=== PATIENT | female | born 1945 | race Caucasian/White ===

== ENCOUNTER 2019-03-12 14:56 | Outpatient (CLI) | payer MEDICARE, OTHER ==
--- NOTE | 2019-03-12 16:59 | Ultrasound Report ---
Reason: BLOATING,PELVIC PAIN,CERVICAL CANCER Procedure Date: 03/12/2019 Accession Number: [id number] / [id number] Procedure: US - Pelvic w/Transvaginal CPT Code: FULL RESULT: EXAM: PELVIC ULTRASOUND. EXAM DATE: 03/12/2019 03:34 PM. CLINICAL HISTORY: Bloating, pelvic pain, cervical cancer. COMPARISON: None. TECHNIQUE: Realtime transabdominal pelvic scan performed to identify the uterus and adnexa and as an overview of other pelvic structures, followed by transvaginal scan to provide greater detail of the uterus and adnexa, with static image documentation. FINDINGS: Uterus: The uterus is not seen, reported surgically removed. Right and left Ovary: Despite transabdominal and transvaginal attempts, both ovaries not seen, ultrasound windows are obscured by bowel gas. Free Fluid: None. Other: None. IMPRESSION: No free fluid or overt mass detected. RADIA
== END 2019-03-12 14:57 | disposition home or self-care (01) ==
LOC: DI 14:56
PROVIDERS: ATTEND Obstetrics & Gynecology
DX: R14.0 Abdominal distension (gaseous) (principal); R10.2 Pelvic and perineal pain; Z08 Encounter for follow-up examination after completed treatment for malignant neoplasm; Z85.41 Personal history of malignant neoplasm of cervix uteri
CPT/HCPCS: 76830; 76856

== ENCOUNTER 2020-11-20 11:38 | Emergency (ER) | payer MEDICARE, OTHER ==
--- NOTE | 2020-11-20 12:01 | ED Physician Documentation ---
PD HPI HEAD INJURY - Stated complaint Stated Complaint: GLF - Chief complaint Chief Complaint: Neuro - History obtained from History obtained from: Patient, Other - History of Present Illness Mechanism of head injury: Fell (Patient reports a mechanical fall losing her balance a week ago falling onto her right side on the cement. Injury to right side of her head and face, right lateral ribs, right elbow and ankle. She developed significant bruising in those areas with pain in the ribs and head in particular.), Other (She states she went to a walk-in clinic (sees the one [facility]) 2 days later and was evaluated. She may have had some mild weakness of the left arm at that time she says. She had a Tyshawn wrap of the ankle and states directed to recheck if worsening symptoms.) Where head injury occurred: Home Timing - onset: How many days ago (injury 1 week ago. Some weakness left arm at [place] eval. Definite weakness left arm and face the past 4 days.) Location of injury: Right, Front Quality of pain: Throbbing, Aching Associated symptoms: Other (weakness left arm and face the past 4 days notably; mild weakness left arm after the fall.). No: LOC, AMS, Neck pain Symptoms worsen with: Palpation (tender at scalp and face. Has pain right chest with movement and deep breathing.) Contributing factors: Anticoagulated (due to atrial fib) Similar symptoms before: Has not had sx before Recently seen: Clinic (walk in clinic 5 days ago.) Review of Systems Constitutional: denies: Fever, Chills Nose: denies: Rhinorrhea / runny nose, Congestion Cardiac: reports: Chest pain / pressure (right posterolateral mid ribs area.) Respiratory: reports: Dyspnea. denies: Cough GI: denies: Abdominal Pain, Nausea, Vomiting, Diarrhea Skin: reports: Abrasion (s) (right ankle). denies: Laceration (s) Neurologic: reports: Focal weakness (left side face and left arm), Numbness (left arm/hand), Headache, Head injury. denies: Altered mental status, LOC PD PAST MEDICAL HISTORY - Past Medical History Cardiovascular: Atrial fibrillation Respiratory: None Neuro: None Endocrine/Autoimmune: None GI: None Psych: Depression, Anxiety - Present Medications Home Medications: Ambulatory Orders Medication Instructions Recorded Confirmed Cholestyramine [Questran] 1 packet PO TID 11/20/20 11/20/20 Ipratropium [place] 1 - 2 sprays TID 11/20/20 11/20/20 Levothyroxine [Synthroid] 112 mcg PO QDAC 11/20/20 11/20/20 OLANZapine [Zyprexa Zydis] 7.5 mg PO QPM 11/20/20 11/20/20 Rivaroxaban [Xarelto] 20 mg PO QDDINNER 11/20/20 11/20/20 Sertraline [Zoloft] 75 mg PO DAILY 11/20/20 11/20/20 Spironolactone [Aldactone] 25 mg PO DAILY 11/20/20 11/20/20 amLODIPine [Norvasc] 5 mg PO DAILY 11/20/20 11/20/20 traZODone [Desyrel] 25 mg PO QPM 11/20/20 11/20/20 - Allergies Allergies/Adverse Reactions: Allergies Allergy/AdvReac Type Severity Reaction Status Date / Time No Known Drug Allergies Allergy Verified 11/20/20 11:57 PD ED PE NORMAL - Vitals Vital signs reviewed: Yes - General General: Alert and oriented X 3, Well developed/nourished, Other (Very notable bruising around the right side of the face head and lateral neck. Bruising is deeper purple. Tenderness along the scalp and forehead.) - HEENT HEENT: PERRL, EOMI, Pharynx benign, Other (left facial weakness moderate) - Neck Neck: Supple, no meningeal sign, No bony TTP - Cardiac Cardiac: No: RRR (irregular but rate controlled. No notable murmur. ) - Respiratory Respiratory: No respiratory distress, Clear bilaterally, Other (She has tenderness along the posterior lateral thoracic chest wall approximately ribs 6 through 8 area. No crepitance. Significant purple bruising from that area down to the iliac crest.) - Abdomen Abdomen: Soft, Non tender, Non distended - Female Female : Deferred - Rectal Rectal: Deferred - Back Back: No spinal TTP - Derm Derm: Normal color, Warm and dry - Extremities Extremities: Other (Right ankle is tender along the lateral malleolus. There is moderate swelling. There is bruising from the ankle to the dorsum of the foot and the lateral toes but no tenderness in the foot or toes themselves.). No: No tenderness to palpate - Neuro Neuro: Alert and oriented X 3, Normal speech, Other (Left-sided facial weakness. Left arm with 3 out of 5 motor and weak pickers material handlers. Decreased sensation to touch diffusely. The left leg has a very mild degree of weakness compared to the right.) Results - Vitals Vitals: Vital Signs - 24 hr 11/20/20 11/20/20 11/20/20 12:34 13:46 14:00 Temperature 37.0 C 37.0 C Heart Rate 60 65 68 Respiratory 18 20 18 Rate Blood Pressure 131/63 H 134/73 H 149/75 H O2 Saturation 100 98 97 11/20/20 11/20/20 11/20/20 14:30 15:00 15:10 Temperature Heart Rate 64 63 63 Respiratory 13 16 18 Rate Blood Pressure 139/65 H 140/69 H 140/69 H O2 Saturation 98 98 98 Oxygen O2 Source Room air - Labs Labs: Laboratory Tests 11/20/20 11/20/20 11/20/20 12:00 12:00 12:00 WBC 8.6 RBC 3.22 L Hgb 9.9 L Hct 30.6 L MCV 95.0 MCH 30.7 MCHC 32.4 RDW 12.8 Plt Count 258 MPV 10.4 Neut # (Auto) 6.1 Lymph # (Auto) 1.4 L Winn # (Auto) 0.9 Eos # (Auto) 0.1 Baso # (Auto) 0.1 Absolute Nucleated RBC 0.00 Nucleated RBC % 0.0 PT 12.9 H INR 1.2 APTT 24.3 L Sodium 137 Potassium 3.9 Chloride 99 L Carbon Dioxide 24 Anion Gap 14.0 H BUN 11 Creatinine 0.6 Estimated GFR (MDRD) 97 Glucose 132 H Calcium 9.7 Magnesium 2.3 Total Bilirubin 1.5 H AST 22 ALT 11 Alkaline Phosphatase 59 Total Protein 7.8 Albumin 4.4 Globulin 3.4 Albumin/Globulin Ratio 1.3 Lipase 27 Nasal Adenovirus (PCR) Nasal B. parapertussis DNA (PCR) Nasal Coronavir 229E PCR Nasal Coronavir HKU1 PCR Nasal Coronavir NL63 PCR Nasal Coronavir OC43 PCR Nasal Enterovir/Rhinovir PCR Nasal Influenza B PCR Nasal Influenza A PCR Nasal Parainfluen 1 PCR Nasal Parainfluen 2 PCR Nasal Parainfluen 3 PCR Nasal Parainfluen 4 PCR Nasal RSV (PCR) Nasal B.pertussis DNA PCR Nasal C.pneumoniae (PCR) Andrew Human Metapneumo PCR Nasal M.pneumoniae (PCR) Nasal SARS-CoV-2 (PCR) 11/20/20 13:55 WBC RBC Hgb Hct MCV MCH MCHC RDW Plt Count MPV Neut # (Auto) Lymph # (Auto) Winn # (Auto) Eos # (Auto) Baso # (Auto) Absolute Nucleated RBC Nucleated RBC % PT INR APTT Sodium Potassium Chloride Carbon Dioxide Anion Gap BUN Creatinine Estimated GFR (MDRD) Glucose Calcium Magnesium Total Bilirubin AST ALT Alkaline Phosphatase Total Protein Albumin Globulin Albumin/Globulin Ratio Lipase Nasal Adenovirus (PCR) NOT DETECTED Nasal B. parapertussis DNA (PCR) NOT DETECTED Nasal Coronavir 229E PCR NOT DETECTED Nasal Coronavir HKU1 PCR NOT DETECTED Nasal Coronavir NL63 PCR NOT DETECTED Nasal Coronavir OC43 PCR NOT DETECTED Nasal Enterovir/Rhinovir PCR NOT DETECTED Nasal Influenza B PCR NOT DETECTED Nasal Influenza A PCR NOT DETECTED Nasal Parainfluen 1 PCR NOT DETECTED Nasal Parainfluen 2 PCR NOT DETECTED Nasal Parainfluen 3 PCR NOT DETECTED Nasal Parainfluen 4 PCR NOT DETECTED Nasal RSV (PCR) NOT DETECTED Nasal B.pertussis DNA PCR NOT DETECTED Nasal C.pneumoniae (PCR) NOT DETECTED Andrew Human Metapneumo PCR NOT DETECTED Nasal M.pneumoniae (PCR) NOT DETECTED Nasal SARS-CoV-2 (PCR) NOT DETECTED - Rads (name of study) head CT Radiology: Prelim report reviewed, Discussed with rads (1 cm right subdural hematoma with some subarachnoid extension. There is encroachment on the lateral ventricle. Mild midline shift. No fracture), See rad report cervical CT Radiology: Prelim report reviewed (degenerative changes without fracture.), See rad report chest C/Abd CT Radiology: Prelim report reviewed (Posterior lateral right seventh rib fracture. Soft tissue swelling. No lung injury. Intra-abdominal organs are normal.), See rad report ankle xray Radiology: Prelim report reviewed (no fractures), See rad report PD MEDICAL DECISION MAKING - ED course Complexity details: reviewed results, considered differential (1 week ago with injury to the right side of the head chest wall lower leg and ankle. Localized bruising and swelling. Seen in a walk-in clinic 2 days later with a wrap for her ankle. Apparent normal neuro at that time. She has noticed weakness of her left arm and side of the face for 4 days.), d/w patient, d/w technology sales consultant (Contact was made with [facility] average regarding trauma. Initially waited for neurosurgery to call back. They were in a case. Subsequently Dr. Cordero trauma surgeon called and accepted transfer. They did want ER evaluation of on transfer as a trauma.) Departure - Departure Disposition: 02 Transfer Acute Care Hosp Clinical Impression: Anticoagulant long-term use, Subdural hematoma, acute, Left-sided weakness Head contusion Qualifiers: Encounter type: initial encounter Contusion of head detail: scalp Qualified Code(s): S00.03XA - Contusion of scalp, initial encounter Chest wall contusion Qualifiers: Encounter type: initial encounter Laterality: right Qualified Code(s): S20.211A - Contusion of right front wall of thorax, initial encounter Ankle sprain Qualifiers: Encounter type: initial encounter Involved ligament of ankle: unspecified ligament Laterality: right Qualified Code(s): S93.401A - Sprain of unspecified ligament of right ankle, initial encounter Rib fracture Qualifiers: Encounter type: initial encounter Rib fracture type: single rib Fracture type: closed Laterality: right Qualified Code(s): S22.31XA - Fracture of one rib, right side, initial encounter for closed fracture Condition: Stable Record reviewed to determine appropriate education?: Yes
[2020-11-20 12:33] LABS: BASOPHILS # (AUTO) 0.1 10^3/uL (0.0-0.1); BASOPHILS % (AUTO) 0.9 %; EOSINOPHILS # (AUTO) 0.1 10^3/uL (0.0-0.7); EOSINOPHILS % (AUTO) 1.1 %; HCT - HEMATOCRIT 30.6 % (37.0-47.0); HGB - HEMOGLOBIN 9.9 g/dL (12.0-16.0); LYMPHOCYTES # (AUTO) 1.4 10^3/uL (1.5-3.5); LYMPHOCYTES % (AUTO) 15.9 %; MEAN CORPUSCULAR HEMOGLOBIN 30.7 pg (27.0-31.0); MEAN CORPUSCULAR HGB CONC 32.4 g/dL (32.0-36.0); MEAN PLATELET VOLUME 10.4 fL (7.9-10.8); MONOCYTES # (AUTO) 0.9 10^3/uL (0.0-1.0); MONOCYTES % (AUTO) 10.3 %; NEUTROPHILS # (AUTO) 6.1 10^3/uL (1.5-6.6); NEUTROPHILS % (AUTO) 71.3 %; PLT - PLATELET COUNT 258 10^3/uL (130-450); RED BLOOD COUNT 3.22 10^6/uL (4.20-5.40); RED CELL DISTRIBUTION WIDTH 12.8 % (12.0-15.0); WHITE BLOOD COUNT 8.6 x10^3/uL (4.8-10.8)
[2020-11-20 12:42] LABS: INR 1.2 (0.8-1.2); PT - PROTHROMBIN TIME 12.9 secs (9.9-12.6)
[2020-11-20] MEDS ORDERED: IOVERSOL 320 100 ML VIAL IVP ONE ×2 (12:47→14:39)
[2020-11-20 12:49] LABS: ALBUMIN 4.4 g/dL (3.2-5.5); ALBUMIN/GLOBULIN RATIO 1.3 (1.0-2.2); BILIRUBIN,TOTAL 1.5 mg/dL (0.2-1.0); CALCIUM 9.7 mg/dL (8.5-10.3); CREATININE 0.6 mg/dL (0.4-1.0); MAGNESIUM 2.3 mg/dL (1.7-2.8); POTASSIUM 3.9 mmol/L (3.5-5.0); TOTAL PROTEIN 7.8 g/dL (6.7-8.2)
[2020-11-20 12:50] LABS: PARTIAL THROMBOPLASTIN TIME 24.3 secs (24.9-33.3)
--- NOTE | 2020-11-20 13:28 | XRAY Report ---
PROCEDURE: Ankle 3 View RT INDICATIONS: fall with injury right ankle TECHNIQUE: 3 views of the ankle were acquired. COMPARISON: None FINDINGS: Bones: No fractures or dislocations. Ankle mortise is normally aligned. No suspicious bony lesions . Soft tissues: No tibiotalar joint effusion. Achilles tendon appears normal. Lateral soft tissue sw elling. IMPRESSION: 1. Lateral ankle sprain. 2. No evidence acute fracture or dislocation of the right ankle. Reviewed by: Randy Wakefield MD on 11/20/2020 12:26 PM [facility] Approved by: Randy Wakefield MD on 11/20/2020 12:26 PM [facility] Station ID: [id number]
--- NOTE | 2020-11-20 13:32 | CT Report ---
PROCEDURE: CERVICAL SPINE WO INDICATIONS: fall with head/neck injury TECHNIQUE: Noncontrast 3 mm thick sections acquired from the skull base to the T4 level. Sagittal and coronal r eformats were then constructed. For radiation dose reduction, the following was used: automated exp osure control, adjustment of mA and/or kV according to patient size. COMPARISON: None. FINDINGS: Image quality: Excellent. Bones: No fractures or dislocations. Visualized superior ribs are intact. Cervical spondylosis cent ered at C4-C5 and C5-C6. At these levels there is facet hypertrophy and bilateral uncovertebral joint osteophytes and bilateral bony foraminal narrowing. Soft tissues: Prevertebral soft tissues are normal in thickness. No paravertebral hematomas. No ap ical pneumothoraces. Lateral carotid bifurcation region atherosclerotic calcifications. IMPRESSION: 1. No evidence acute cervical fracture or dislocation. 2. Cervical spondylitic change. 3. ASCVD. Reviewed by: Randy Wakefield MD on 11/20/2020 12:30 PM [facility] Approved by: Randy Wakefield MD on 11/20/2020 12:30 PM [facility] Station ID: [id number]
[2020-11-20] MEDS ORDERED: PROTHROMBIN COMPLEX CONC 500 UNIT VIAL IVP STA (13:37)
--- NOTE | 2020-11-20 13:39 | CT Report ---
PROCEDURE: HEAD WO INDICATIONS: fall with head injury; on DOAC TECHNIQUE: Noncontrast 4.5 mm thick angled axial sections acquired from the foramen magnum to the vertex. For r adiation dose reduction, the following was used: automated exposure control, adjustment of mA and/or kV according to patient size. COMPARISON: None. FINDINGS: Image quality: Excellent. CSF spaces: There is an acute subdural hematoma on the right which measures 1.0 cm in maximum transv erse thickness. There is mass effect on the its lateral lateral ventricle which is slightly compresse d. There is a small amount of right subarachnoid hemorrhage Brain: There is very trace midline shift. There is mild narrowing of the ambient cistern. Medina-white matter interface is normal. Skull and face: Calvarium and visualized facial bones are intact, without suspicious lesions. Small right frontal subgaleal hematoma. Sinuses: Bilateral maxillary sinus air-fluid levels and mucosal thickening. Extensive opacification o f the ethmoids, which is likely chronic. Cannot exclude polyps. Hypoaerated frontal sinuses, opacifie d on the right and nonformed on the left. Sphenoid sinus air-fluid level. IMPRESSION: 1. Acute right subdural hematoma which measures 1.0 cm in maximum transverse diameter, with mass effe ct on the ipsilateral lateral ventricle, minimal midline shift, and slight narrowing of the ambient c istern. 2. Small right subarachnoid hemorrhage, likely posttraumatic. 3. Acute on chronic pansinusitis Above discussed with KATHRYN PADRON at the time of dictation on 11/20/20 at 12:35 hours [place] Standard Time. Reviewed by: Randy Wakefield MD on 11/20/2020 12:38 PM [facility] Approved by: Randy Wakefield MD on 11/20/2020 12:38 PM [facility] Station ID: [id number]
[2020-11-20] MEDS ORDERED: MORPHINE 2 MG/ML CARPUJECT IVP STA (13:40)
[2020-11-20] MEDS ORDERED: ACETAMINOPHEN 325 MG TABLET PO STA (13:40)
--- NOTE | 2020-11-20 13:44 | CT Report ---
PROCEDURE: CHEST W INDICATIONS: fall with trunk; right ribs injury CONTRAST: IV CONTRAST: Optiray 320 ml: 100 PO CONTRAST: *NO PO CONTRAST TECHNIQUE: After the administration of intravenous contrast, 5 mm thick sections acquired from the pulmonary api [place] to the posterior costophrenic angles. 7 mm thick coronal MIP reformats were acquired. For radia tion dose reduction, the following was used: automated exposure control, adjustment of mA and/or kV according to patient size. COMPARISON: None. FINDINGS: Image quality: Excellent. Lungs and pleura: No acute air space opacities. No pleural effusions or pneumothorax. Central and peripheral airways are patent and normal in caliber. Mediastinum: Heart size is normal. No pericardial effusion. No mediastinal or hilar adenopathy by size criteria. Thoracic aorta and central pulmonary arteries are normal in size. Esophagus is aleena l in caliber. Moderate hiatal hernia. Bones and chest wall: Anterior right seventh rib fracture. No suspicious bony lesions. No vertebral body compression fractures. No axillary or supraclavicular adenopathy by size criteria. Thyroid gl and is unremarkable as visualized. Bilateral mammoplasties. Abdomen: Visualized upper abdominal solid organs appear normal. Upper abdominal bowel loops are nor mal in caliber. IMPRESSION: 1. Anterior right seventh rib fracture. 2. No other evidence of significant sequelae of acute trauma in the chest. 3. No evidence acute pulmonary process. 4. Moderate hiatal hernia. Reviewed by: Randy Wakefield MD on 11/20/2020 12:43 PM [place] Approved by: Randy Wakefield MD on 11/20/2020 12:43 PM [facility] [place] Station ID: [id number]
--- NOTE | 2020-11-20 13:51 | CT Report ---
PROCEDURE: Abdomen/Pelvis W INDICATIONS: fall with trunk injury CONTRAST: IV CONTRAST: Optiray 320 ml: 100 PO CONTRAST: *NO PO CONTRAST TECHNIQUE: After the administration of intravenous contrast, 5 mm thick sections acquired from the diaphragms to the symphysis. 5 mm thick coronal and sagittal reformats were acquired. For radiation dose reducti on, the following was used: automated exposure control, adjustment of mA and/or kV according to luis antonio ent size. COMPARISON: CT chest from today FINDINGS: Image quality: Excellent. ABDOMEN: Lung bases: Lung bases are clear. Heart size is normal. Moderate hiatal hernia. Solid organs: Liver and spleen are normal in size and enhancement. Gallbladder is unremarkable. Bi liary system is non dilated. Pancreas enhances normally. No adrenal nodules. Kidneys demonstrate n ormal size and enhancement, without hydronephrosis. Peritoneum and bowel: Bowel loops demonstrate normal wall thickness and caliber. No free fluid or a ir. Nodes and vessels: No retroperitoneal or mesenteric adenopathy by size criteria. Aorta and inferior vena cava are normal in size. Miscellaneous: No ventral hernias. PELVIS: Genitourinary: Bladder wall thickness is normal. Miscellaneous: No inguinal hernias or adenopathy. Uterus is surgically absent. Bones: Anterior right seventh rib fracture. No suspicious bony lesions. Old moderate T12 compression fracture. Grade 1 degenerative anterolisthesis of L4 on L5 measuring 6 mm. Associated right foramina l disc protrusion with impingement on the right L4 nerve root in the right foramen. Severe canal sten osis. There is also moderate canal stenosis at L3-L4. IMPRESSION: 1. Anterior right seventh rib fracture. 2. No significant sequelae of acute trauma in the abdomen and pelvis. 3. Old moderate T12 compression fracture. 4. Anterolisthesis of L4 on L5 with an associated right foraminal disc protrusion results in impingem ent on the right L4 nerve root in the right foramen. There is severe canal stenosis at this level. 5. There is moderate canal stenosis at L3-L4. Reviewed by: Randy Wakefield MD on 11/20/2020 12:49 PM [facility] Approved by: Randy Wakefield MD on 11/20/2020 12:49 PM [facility] Station ID: [id number]
[2020-11-20 15:11] VITALS: BP 140/69
[2020-11-20 15:12] LABS: B. PARAPERTUSSIS- RESP PCR PAN NOT DETECTED; B. PERTUSSIS- RESP PCR PANEL NOT DETECTED; C. PNEUMONIAE- RESP PCR PANEL NOT DETECTED; CORONAVIRUS 229E-RESP PCR NOT DETECTED; CORONAVIRUS HKU1-RESP PCR NOT DETECTED; CORONAVIRUS NL63-RESP PCR NOT DETECTED; CORONAVIRUS OC43-RESP PCR NOT DETECTED; HUMAN METAPNEUMOVIRUS NOT DETECTED; INFLUENZA A- RESP PCR PANEL NOT DETECTED; INFLUENZA B - RESP PCR PANEL NOT DETECTED; M. PNEUMONIAE- RESP PCR PANEL NOT DETECTED; PARAINFLUENZA VIRUS 1 NOT DETECTED; PARAINFLUENZA VIRUS 2 NOT DETECTED; PARAINFLUENZA VIRUS 3 NOT DETECTED; PARAINFLUENZA VIRUS 4 NOT DETECTED; RHINOVIRUS/ENTEROVIRUS NOT DETECTED; RSV- RESP PCR PANEL NOT DETECTED; SARS-CoV-2 -RESP PCR PANEL NOT DETECTED
== END 2020-11-20 16:45 | disposition short-term general hospital (02) ==
LOC: ED 11:38
DX: S06.5X9A Traumatic subdural hemorrhage with loss of consciousness of unspecified duration, initial encounter (principal); S00.03XA Contusion of scalp, initial encounter; S20.211A Contusion of right front wall of thorax, initial encounter; S93.401A Sprain of unspecified ligament of right ankle, initial encounter; S22.31XA Fracture of one rib, right side, initial encounter for closed fracture; W19.XXXA Unspecified fall, initial encounter; R29.898 Other symptoms and signs involving the musculoskeletal system; Z79.01 Long term (current) use of anticoagulants; Z20.822 Contact with and (suspected) exposure to COVID-19
CPT/HCPCS: 36415; 70450; 71260; 72125; 73610; 74177; 80053; 83690; 83735; 85025; 85610; 85730; 87631; 93005; 96374; 96375; 99284; 99285; A9270; C9132; Q9967; 0202U

== ENCOUNTER 2020-11-20 16:46 | Outpatient (CLI) | payer MEDICARE, OTHER | END 2020-11-20 16:47 | disposition short-term general hospital (02) | LOC: EMS 16:46 | PROVIDERS: ATTEND Emergency Medicine | DX: S06.5X9A Traumatic subdural hemorrhage with loss of consciousness of unspecified duration, initial encounter (principal); S22.39XA Fracture of one rib, unspecified side, initial encounter for closed fracture; S93.409A Sprain of unspecified ligament of unspecified ankle, initial encounter; Z79.01 Long term (current) use of anticoagulants | CPT/HCPCS: A0425; A0428 ==